=== PATIENT | male | born 1970 | race Caucasian/White ===

== ENCOUNTER 2018-03-11 23:48 | Emergency (ER) | payer OTHER ==
[2018-03-12] VITALS: BP 111/65; PULSE 82; TEMP 98.3; BMI 22.6
--- NOTE | 2018-03-12 00:14 | PDOC ---
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 He denies any trauma. No recent travel or sick contacts. PAST MEDICAL HISTORY: NHL in remission since 2003 SURGICAL HISTORY: b/l meniscus repair ALLERGIES: No known drug allergies REVIEW OF SYSTEMS General/Constitutional: Denies fever or chills. Denies weakness, weight change. HEENT: Denies change in vision. Denies ear pain or discharge. Denies sore throat. Cardiovascular: Denies chest pain or shortness of breath. Respiratory: Denies cough, wheezing, or hemoptysis. Gastrointestinal: Denies nausea, vomiting, diarrhea or constipation. Denies rectal bleeding. Genitourinary: Denies dysuria, frequency, or change in urination. Musculoskeletal: Left knee pain. Denies neck or back pain. Skin and breasts: Denies rash or easy bruising. Neurologic: Denies headache, vertigo, loss of consciousness, or loss of sensation. Psychiatric: Denies depression or anxiety. Endocrine: Denies increased thirst. Denies abnormal weight change. Hematologic/Lymphatic: Denies anemia, easy bleeding, or history of blood clots. Allergic/Immunologic: Denies hives or skin allergy. Denies latex allergy. PHYSICAL EXAM General Appearance: Well-appearing, appropriately dressed. No apparent distress , no intoxication. Respiratory/Chest: Lungs CTAB. No shortness of breath, chest tenderness, respiratory distress, accessory muscle use. No crackles, rales, rhonchi, stridor , wheezing, dullness Cardiovascular: RRR. S1, S2. No JVD, murmur, bradycardia, tachycardia. Vascular Pulses: Dorsalis-Pedis (R): 2+, Dorsalis-Pedis (L): 2+ Musculoskeletal/Extremities: Normal inspection. FROM of all extremities, normal capillary refill. Pelvis Stable. No CVA tenderness. No tenderness to extremities, pedal edema, swelling, erythema or deformity. -Luis Eduardo's test. Past History - Past Medical History Allergies/Adverse Reactions: Allergies Allergy/AdvReac Type Severity Reaction Status Date / Time meperidine HCl Allergy Severe Difficulty Verified 03/12/18 00:00 [From Demerol (PF)] Breathing Home Medications: Ambulatory Orders No Home Medications 0 dose .ROUTE UTDICT 11/21/12 Anemia: No Asthma: No Cancer: Yes (non hodgekins lymphoma 2002-had chemo) Cardiac Disorders: No CVA: No COPD: No CHF: No Dementia: No Diabetes: No GI Disorders: No Disorders: No HTN: No Hypercholesterolemia: No Liver Disease: No Seizures: No Thyroid Disease: No - Surgical History Abdominal Surgery: Yes (Bilateral Inguinal Hernia Repair) Appendectomy: No Cardiac Surgery: No Cholecystectomy: No Lung Surgery: No Neurologic Surgery: No Orthopedic Surgery: Yes (Microdiscectomy,Left Meniscus Repair) - Immunization History Immunization Up to Date: No - Suicide/Smoking/Psychosocial Hx Smoking Status: No Smoking History: Never smoked Number of Cigarettes Smoked Daily: 0 Hx Alcohol Use: No Drug/Substance Use Hx: No Substance Use Type: None Hx Substance Use Treatment: No *Physical Exam - Vital Signs Last Vital Signs Temp Pulse Resp BP Pulse Ox 98.3 F 82 18 111/65 100 03/11/18 23:59 03/11/18 23:59 03/11/18 23:59 03/11/18 23:59 03/11/18 23:59 Moderate Sedation - Procedure Monitoring Vital Signs: Procedure Monitoring Vital Signs Temperature 98.3 F 03/11/18 23:59 Pulse Rate 82 03/11/18 23:59 Respiratory Rate 18 03/11/18 23:59 Blood Pressure 111/65 03/11/18 23:59 O2 Sat by Pulse Oximetry (%) 100 03/11/18 23:59 Medical Decision Making - Medical Decision Making 03/12/18 00:10 A/P: 47-year-old male with history of non-Hodgkin's lymphoma with atraumatic left knee pain No bony tenderness to palpation Full range of motion noted Negative Luis Eduardo test No neurosensory deficits Ambulatory with steady gait X-rays, reassess 03/12/18 00:45 X-rays of the left knee as read by me: No acute fractures or dislocations present. I'll discharge the patient home to follow-up with his orthopedist Dr. Hyatt as needed. I discussed the physical exam findings, ancillary test results and final diagnoses with the patient. I answered all of the patient's questions. The patient was satisfied with the care received and felt comfortable with the discharge plan and treatment plan. The patient will call their primary care physician within 24 hours to arrange follow-up and will return to the Emergency Department with any new, persistent or worsening symptoms. *DC/Admit/Observation/Transfer Diagnosis at time of Disposition: Knee pain, left anterior - Discharge Dispostion Disposition: HOME Condition at time of disposition: Stable Decision to Admit order: No - Referrals Referrals: Tarik Hyatt MD [Staff Physician] - - Patient Instructions Additional Instructions: REST. Take Tylenol or Motrin as needed for pain. Follow manufacturers instructions for appropriate dosage. Apply ice for 20 minutes and removed for at least 20 minutes before reapplying the ice. Whenever possible keep your foot elevated. You've been given the number for an orthopedist. If symptoms do not resolve within the next 7 days call the orthopedist for further evaluation. Return to emergency department for discoloration of the foot, numbness or tingling to the foot, worsening pain, or any other concerns. Thank you very much for choosing us to provide your emergent healthcare needs. - Post Discharge Activity
== END 2018-03-12 01:09 | disposition home or self-care (01) ==
LOC: JER 23:48
DX: S89.82XA Other specified injuries of left lower leg, initial encounter (principal); M25.562 Pain in left knee; Y35.811A Legal intervention involving manhandling, law enforcement official injured, initial encounter; Y93.89 Activity, other specified; Y92.89 Other specified places as the place of occurrence of the external cause; Y99.0 Civilian activity done for income or pay
CPT/HCPCS: 73560-TC-LT-FY; 99281-25

== ENCOUNTER 2018-03-30 10:11 | Day surgery (SDC) | payer BC ==
[2018-03-27 15:49] VITALS: BMI 23.4
[2018-03-30] MEDS ORDERED: PROPOFOL 20 ML ONE ×2 (14:34→15:11)
[2018-03-30] MEDS ORDERED: DEXAMETHASONE SOD PHOSPHATE 4 MG/1 ML VIAL ONE (14:35)
[2018-03-30] MEDS ORDERED: ONDANSETRON 4 MG/2 ML VIAL ONE ×2 (14:35→16:09)
[2018-03-30] MEDS ORDERED: MIDAZOLAM HCL 2 MG/2 ML SINGLE DOSE VIAL ONE (14:35)
[2018-03-30] MEDS ORDERED: LIDOCAINE HCL/PF 2% SDV 5ML VIAL ONE (14:35)
[2018-03-30] MEDS ORDERED: ceFAZolin SODIUM 1 GM VIAL ONE (15:16)
[2018-03-30] MEDS ORDERED: ONDANSETRON 4 MG/2 ML VIAL IVPUSH PRN (15:25)
[2018-03-30] MEDS ORDERED: oxyCODONE HCL 5 MG TABLET PO PRN (15:25)
[2018-03-30] MEDS ORDERED: LACTATED RINGERS SOLUTION 1,000 ML IV SCH (15:30)
[2018-03-30 17:06] VITALS: PULSE 68; TEMP 98
[2018-03-30 17:07] VITALS: BP 132/74
--- NOTE | 2018-04-09 13:00 | OP ---
DATE OF OPERATION: 03/30/2018 PREOPERATIVE DIAGNOSIS: Left knee medial meniscal tear. POSTOPERATIVE DIAGNOSIS: Left knee medial meniscal tear. PROCEDURE: Left knee arthroscopy with partial medial meniscectomy. SURGEON: Tarik Keys MD ANESTHESIA: General. POSTOPERATIVE CONDITION: Stable. COMPLICATIONS: None. INDICATIONS: This is a pleasant 47-year-old gentleman who previously had left knee meniscectomy, was having recurrent pain and, more so, catching in the left knee. MRI demonstrated a medial meniscal tear. Treatment options, including nonoperative versus operative management, were reviewed. Operative risks were reviewed in detail, including bleeding, infection, neurovascular injury, need for further surgery, postoperative pain and stiffness, progression of osteoarthritis. We discussed medical risks, such as heart attack, stroke, DVT, PE, and . We discussed use of preoperative antibiotic and DVT prophylaxis. I addressed all the patient's questions and concerns. He voiced understanding and elected to proceed. PROCEDURE: The patient was brought to the operating room, where general anesthesia was administered. The left lower extremity was then prepped and draped in the usual sterile fashion. A preoperative dose of antibiotics given and the usual timeout procedure was performed. The portal sites were marked out and injected subcutaneously with 0.25% Marcaine. Lateral portal was established and the arthroscope was passed into the patellofemoral joint. Examination of the patellofemoral joint demonstrated some moderate patellofemoral arthrosis. Passing the arthroscope into the notch demonstrated an intact ACL and PCL. Medial portal was now established under spinal needle localization. Examination of the medial compartment demonstrated some mild superficial articular wear. Examination of the meniscal cartilage demonstrated no definite tear. The probe was now passed along the undersurface of the medial meniscus and a tear was identified at the posterior horn. Utilizing a combination of meniscal biters and a shaver, this was debrided down to a stable base. The arthroscope was then passed into the lateral compartment. Here, slight articular wear was noted. The meniscus was unremarkable. The meniscus was probed and found to be stable. At this point, the excess fluid was withdrawn from the joint. The portals were sutured using 3-0 nylon. Sterile dressings were placed. The patient was extubated, transferred to recovery room in stable condition. TARIK KEYS M.D. SINA/[id number]
== END 2018-03-30 17:47 | disposition home or self-care (01) ==
LOC: FASU 10:11
PROVIDERS: ATTEND Orthopaedic Surgery Sports Medicine
PROC: 0SBD4ZZ Excision of Left Knee Joint, Percutaneous Endoscopic Approach (ICD-10-PCS; principal; 2018-03-30 15:25)
DX: S83.242A Other tear of medial meniscus, current injury, left knee, initial encounter (principal)
CPT/HCPCS: 94760

== ENCOUNTER 2019-06-04 13:07 | Emergency (ER) | payer OTHER, BC ==
[2019-06-04 13:13] VITALS: BP 150/98; PULSE 55; TEMP 98; BMI 23.8
--- NOTE | 2019-06-04 14:35 | PDOC ---
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 Patient report aching to anterior aspect of left shoulder. Denies weakness to left shoulder. Denies any other symptoms Occurred: reports: just prior to arrival Past History - Past Medical History Allergies/Adverse Reactions: Allergies Allergy/AdvReac Type Severity Reaction Status Date / Time meperidine HCl Allergy Severe Difficulty Verified 06/04/19 13:14 [From Demerol (PF)] Breathing Home Medications: Ambulatory Orders No Home Medications 0 dose .ROUTE UTDICT 11/21/12 Methocarbamol [Robaxin -] 500 mg PO BID #14 tablet 06/04/19 Naproxen 500 mg PO BID PRN #20 tablet 06/04/19 Anemia: No Asthma: No Cancer: Yes (non hodgekins lymphoma 2002-had chemo) Cardiac Disorders: No CVA: No COPD: No CHF: No Dementia: No Diabetes: No GI Disorders: No Disorders: No HTN: No Hypercholesterolemia: No Liver Disease: No Seizures: No Thyroid Disease: No - Surgical History Abdominal Surgery: Yes (Bilateral Inguinal Hernia Repair) Appendectomy: No Cardiac Surgery: No Cholecystectomy: No Lung Surgery: No Neurologic Surgery: Yes (Microdiscectomy) Orthopedic Surgery: Yes (Microdiscectomy,Left Meniscus Repair) - Immunization History Immunization Up to Date: No - Psycho Social/Smoking Cessation Hx Smoking Status: No Smoking History: Never smoked Number of Cigarettes Smoked Daily: 0 Hx Alcohol Use: No Drug/Substance Use Hx: No Substance Use Type: None Hx Substance Use Treatment: No Review of Systems - Review of Systems Able to Perform ROS?: Yes Is the patient limited [place] proficient: No Constitutional: No: Malaise, Weakness HEENTM: No: Symptoms Reported, See HPI, Eye Pain, Blurred Vision, Tearing, Recent change in vision, Double Vision, Cataracts, Ear Pain, Ocular Prothesis, Ear Discharge, Nose Pain, Nose Congestion, Tinnitus, Nose Bleeding, Hearing Loss , Throat Pain, Throat Swelling, Mouth Pain, Dental Problems, Difficulty Swallowing, Mouth Swelling, Other Respiratory: No: Symptoms reported, See HPI, Cough, Orthopnea, Shortness of Breath, SOB with Exertion, SOB at Rest, Stridor, Wheezing, Productive cough, Hemoptysis, Other Cardiac (ROS): No: Symptoms Reported, See HPI, Chest Pain, Edema, Irregular Heart Rate, Lightheadedness, Palpitations, Syncope, Chest Tightness, Other ABD/GI: No: Symptoms Reported Musculoskeletal: Yes: Symptoms Reported, See HPI, Joint Pain (left shoulder pain ), Muscle Pain (upper upper arm pain). No: Joint Stiffness Integumentary: No: Symptoms Reported Neurological: No: Symptoms reported, Numbness, Paresthesia, Tingling, Weakness All Other Systems: Reviewed and Negative *Physical Exam - Vital Signs Last Vital Signs Temp Pulse Resp BP Pulse Ox 98 F 55 L 18 150/98 99 06/04/19 13:09 06/04/19 13:09 06/04/19 13:09 06/04/19 13:09 06/04/19 13:09 - Physical Exam 06/04/19 14:33 GENERAL: Well developed, well nourished. Awake and alert. No acute distress. PULMONARY: No evidence of respiratory distress. MUSCULOSKELETAL : Mild tenderness over anterior aspect and lateral deltoid of left shoulder. Full range of motion of left shoulder. 5 out of 5 muscle strength of left shoulder. No shoulder laxity. Negative left arm drop. SKIN: Warm and dry. Normal capillary refill. No bruising or ecchymosis to left shoulder or arm NEUROLOGICAL: Alert, awake, appropriate. No motor deficits in the lower extremities. Gait is normal without ataxia. PSYCHIATRIC: Cooperative. Good eye contact. Appropriate mood and affect. General Appearance: Yes: Nourished, Appropriately Dressed. 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 Patient report aching to anterior aspect of left shoulder. Denies weakness to left shoulder. Denies any other symptoms Exam significant for mild tenderness anterior aspect of left shoulder. 5 out of 5 muscle strength left shoulder. No shoulder laxity. Symptoms likely shoulder sprain versus less likely dislocation. X-ray of left shoulder ordered to rule out acute abnormality 06/04/19 14:45 X-ray of left shoulder shows no acute abnormality. Patient symptoms likely shoulder sprain. Naproxen 500 mg p.o. ordered for pain. Patient stable for discharge on naproxen as needed for pain Robaxin for spasm and advised to do hot compresses with orthopedics follow-up Discharge - Discharge Information Problems reviewed: Yes Clinical Impression/Diagnosis: Muscle strain Sprain of left shoulder Qualifiers: Encounter type: initial encounter Shoulder sprain type: unspecified sprain Qualified Code(s): S43.402A - Unspecified sprain of left shoulder joint, initial encounter Condition: Stable Disposition: HOME - Admission No - Additional Discharge Information Prescriptions: Methocarbamol [Robaxin -] 500 mg PO BID #14 tablet Naproxen 500 mg PO BID PRN #20 tablet PRN Reason: shoulder pain - Follow up/Referral Referrals: Sb Yee DO [Staff Physician] - - Patient Discharge Instructions Patient Printed Discharge Instructions: DI for Shoulder Sprain Additional Instructions: Shoulder x-ray shows no acute dislocation or abnormality. Your pain is likely from shoulder sprain. Take prescribed medication as prescribed for pain. Apply heat to the shoulder as needed for pain. Follow-up referred to orthopedics if symptoms persist for more than 4 days - Post Discharge Activity Work/Back to School Note: Back to Work
[2019-06-04] MEDS ORDERED: NAPROXEN 500 MG TABLET PO ONE (14:44)
[2019-06-04] MEDS ORDERED: NAPROXEN 500 MG TABLET ONE (14:46)
== END 2019-06-04 14:50 | disposition home or self-care (01) ==
LOC: JERFT 13:07
DX: S43.492A Other sprain of left shoulder joint, initial encounter (principal); S46.812A Strain of other muscles, fascia and tendons at shoulder and upper arm level, left arm, initial encounter; Y35.811A Legal intervention involving manhandling, law enforcement official injured, initial encounter; Y93.89 Activity, other specified; Y92.89 Other specified places as the place of occurrence of the external cause; Y99.0 Civilian activity done for income or pay; Z88.5 Allergy status to narcotic agent
CPT/HCPCS: 73030-TC-LT-FY; 99283-25